=== PATIENT | female | born 1980 | race Caucasian/White ===

== ENCOUNTER → 2021-03-23 | Outpatient (CLI) | payer OTHER ==
[~2021-03-23] MED LIST: COLACE 100MG C100 MG PO; DULOXETINE HCL60 MG PO; ELAVIL 50 MG TA50 MG PO; FLEXERIL 10 MG10 MG PO; GABAPENTIN300 MG PO; MOBIC15 MG PO; OMEPRAZOLE20 MG PO; PREDNISONE20 MG PO
== END ==
LOC: KOH-I 13:30
DX: M54.5 Low back pain (principal); M47.816 Spondylosis without myelopathy or radiculopathy, lumbar region
CPT/HCPCS: 72100

== ENCOUNTER 2021-05-15 17:33 | Emergency (ER) | payer OTHER ==
[~2021-05-15 17:33] MED LIST changes: -DULOXETINE HCL60 MG PO; -ELAVIL 50 MG TA50 MG PO; -GABAPENTIN300 MG PO; -OMEPRAZOLE20 MG PO
== END 2021-05-15 17:56 | disposition home or self-care (01) ==
LOC: ER1 17:33
DX: J06.9 Acute upper respiratory infection, unspecified (principal); M54.9 Dorsalgia, unspecified; G89.29 Other chronic pain; Z20.822 Contact with and (suspected) exposure to COVID-19; F17.200 Nicotine dependence, unspecified, uncomplicated; G62.9 Polyneuropathy, unspecified
CPT/HCPCS: 96372; 99283; J1885; U0003

== ENCOUNTER 2021-05-26 09:51 | Inpatient (IN) | payer OTHER ==
[~2021-05-26] VITALS: Ht 152.4 cm; Wt 114.0 kg
[2021-05-26 14:55] LABS: HEMOGLOBIN 14.8 gm/dl (12.3-15.3); RED BLOOD COUNT 4.94 M/UL (4.00-5.10); WHITE BLOOD COUNT 20.8 K/UL (4.5-11.0)
[2021-05-26 15:15] LABS: BUN/CREATININE RATIO 14 (0-10)
[2021-05-27] MEDS ORDERED: ELAVIL 50 MG TA50 MG PO (00:04)
[2021-05-27] MEDS ORDERED: OMEPRAZOLE20 MG PO (00:04)
[2021-05-27] MEDS ORDERED: DULOXETINE HCL60 MG PO (00:05)
[2021-05-27] MEDS ORDERED: GABAPENTIN300 MG PO (00:05)
[2021-05-27 06:57] LABS: HEMOGLOBIN 12.6 gm/dl (12.3-15.3); RED BLOOD COUNT 4.33 M/UL (4.00-5.10)
[2021-05-27 07:22] LABS: BUN/CREATININE RATIO 16 (0-10)
[2021-05-28 06:57] LABS: HEMOGLOBIN 11.1 gm/dl (12.3-15.3); WHITE BLOOD COUNT 11.6 K/UL (4.5-11.0)
[2021-05-28 07:03] LABS: RED BLOOD COUNT 3.83 M/UL (4.00-5.10)
[2021-05-28 07:15] LABS: BUN/CREATININE RATIO 10 (0-10)
--- NOTE | 2021-05-28 09:55 | NUR ---
TELE APPLIED AT THIS TIME.
--- NOTE | 2021-05-28 18:14 | NUR ---
REPORT CALLED TO GIANNI RN ON 5TH FLOOR AT THIS TIME. PATINET ALERT AND ORIENTED, VITALS STABLE, NS INFUSING WIHTOUT DIFFICULTY, IV PATENT, NO NEEDS VERBALIZED. PAIN AT A TOLERABLE LEVEL AT TIME OF REPORT.
== END 2021-05-31 18:24 | disposition home or self-care (01) | DRG 417 ==
LOC: ER1 09:51 → CDU 18:43 → M/S 18:43 → MED SURG 4 23:54 → M/S 05-28 18:27
PROVIDERS: Emergency Medicine; ADMIT Surgery
PROC: B24BZZ4 Ultrasonography of Heart with Aorta, Transesophageal (ICD-10-PCS; principal; 2021-05-29)
PROC: 0FT44ZZ Resection of Gallbladder, Percutaneous Endoscopic Approach (ICD-10-PCS; 2021-05-31)
PROC: BF141ZZ Fluoroscopy of Gallbladder, Bile Ducts and Pancreatic Ducts using Low Osmolar Contrast (ICD-10-PCS; 2021-05-31)
DX: K81.0 Acute cholecystitis (principal); K85.10 Biliary acute pancreatitis without necrosis or infection; Z20.822 Contact with and (suspected) exposure to COVID-19; Z68.42 Body mass index [BMI] 45.0-49.9, adult; R65.10 Systemic inflammatory response syndrome (SIRS) of non-infectious origin without acute organ dysfunction; F17.210 Nicotine dependence, cigarettes, uncomplicated; K21.9 Gastro-esophageal reflux disease without esophagitis; E66.9 Obesity, unspecified; Z82.49 Family history of ischemic heart disease and other diseases of the circulatory system; Z88.1 Allergy status to other antibiotic agents; Z88.8 Allergy status to other drugs, medicaments and biological substances; Z87.59 Personal history of other complications of pregnancy, childbirth and the puerperium
CPT/HCPCS: ECHO; 36415; 76705; 80053; 81001; 83690; 84703; 85025; 85027; 87086; 93005; 93306; 96374; 96375; 99285; J0690; J0696; J1100; J1170; J1885; J2001; J2250; J2270; J2405; J2550; J2704; J2710; J3010; J3370; J7030; J7120; Q9967; U0002

== ENCOUNTER 2021-06-30 14:49 | Emergency (ER) | payer OTHER ==
[~2021-06-30 14:49] MED LIST changes: +DULOXETINE HCL60 MG PO; +ELAVIL 50 MG TA50 MG PO; +GABAPENTIN300 MG PO; +OMEPRAZOLE20 MG PO
[2021-06-30] MEDS ORDERED: NAPROSYN500 MG PO (16:36)
[2021-06-30] MEDS ORDERED: CYCLOBENZAPRINE10 MG PO (16:36)
== END 2021-06-30 16:45 | disposition home or self-care (01) ==
LOC: ER1 14:49
DX: M51.36 Other intervertebral disc degeneration, lumbar region (principal); F17.200 Nicotine dependence, unspecified, uncomplicated; Z90.49 Acquired absence of other specified parts of digestive tract; Z88.1 Allergy status to other antibiotic agents; W10.9XXA Fall (on) (from) unspecified stairs and steps, initial encounter
CPT/HCPCS: 72131; 84703; 96372; 99284; J1885

== ENCOUNTER 2021-10-02 13:23 | Emergency (ER) | payer OTHER ==
[~2021-10-02 13:23] MED LIST changes: +CYCLOBENZAPRINE10 MG PO; +NAPROSYN500 MG PO
== END 2021-10-02 16:35 | disposition home or self-care (01) ==
LOC: ER1 13:23
DX: U07.1 COVID-19 (principal); I10 Essential (primary) hypertension; F17.200 Nicotine dependence, unspecified, uncomplicated; Z88.1 Allergy status to other antibiotic agents
CPT/HCPCS: 0240U; 87081; 87880; 99283

== ENCOUNTER 2022-03-13 12:14 | Emergency (ER) | payer OTHER ==
[2022-03-13] MEDS ORDERED: HYDROCODON-ACE1 EAC4 PO (14:52)
== END 2022-03-13 15:40 | disposition home or self-care (01) ==
LOC: ER1 12:14
DX: M54.50 Low back pain, unspecified (principal); F17.200 Nicotine dependence, unspecified, uncomplicated; Z90.49 Acquired absence of other specified parts of digestive tract; Z88.1 Allergy status to other antibiotic agents; W19.XXXA Unspecified fall, initial encounter
CPT/HCPCS: 72131; 72170; 81001; 84703; 99284

== ENCOUNTER 2022-04-15 21:03 | Emergency (ER) | payer OTHER ==
[~2022-04-15 21:03] MED LIST changes: +HYDROCODON-ACE1 EAC4 PO
== END 2022-04-15 23:37 | disposition left against medical advice (07) ==
LOC: ER1 21:03
DX: Z53.21 Procedure and treatment not carried out due to patient leaving prior to being seen by health care provider (principal)

== ENCOUNTER 2022-05-12 15:17 | Emergency (ER) | payer OTHER ==
[2022-05-12 20:15] LABS: HEMOGLOBIN 12.7 gm/dl (12.3-15.3); RED BLOOD COUNT 4.28 M/UL (4.00-5.10); WHITE BLOOD COUNT 9.5 K/UL (4.5-11.0)
[2022-05-12 20:38] LABS: BUN/CREATININE RATIO 23 (0-10)
[2022-05-12] MEDS ORDERED: NAPROSYN500 MG PO (22:42)
[2022-05-12] MEDS ORDERED: CYCLOBENZAPRINE5 MG PO (22:42)
[2022-05-12] MEDS ORDERED: MACROBID 100 M100 MG PO (22:42)
== END 2022-05-12 22:50 | disposition home or self-care (01) ==
LOC: ER1 15:17
PROVIDERS: Physician Assistant
DX: N39.0 Urinary tract infection, site not specified (principal); M54.50 Low back pain, unspecified; G89.29 Other chronic pain; R00.8 Other abnormalities of heart beat; R60.0 Localized edema; I10 Essential (primary) hypertension; F17.200 Nicotine dependence, unspecified, uncomplicated; Z90.49 Acquired absence of other specified parts of digestive tract; Z88.8 Allergy status to other drugs, medicaments and biological substances; Z88.1 Allergy status to other antibiotic agents
CPT/HCPCS: 71046; 80053; 81001; 82550; 82553; 83735; 83880; 84439; 84443; 84484; 84703; 85025; 93005; 96372; 96374; 96375; 99284; C9113; J1100; J1885; J2405